=== PATIENT | male | born 1955 | race Caucasian/White ===

== ENCOUNTER 2016-09-27 13:58 | Inpatient (IN) | payer OTHER ==
[~2016-09-27] VITALS: Ht 162.6 cm; Wt 62.5 kg
--- NOTE | ~2016-09-27 | CATHLAB ---
[facility] [place] [address] INVASIVE PROCEDURE REPORT Name: PHYLLISMATHEUS Room #: 204-P [facility] IN .R.#: [id number] Admission: 09/27/16 Attend Phys: Fermin Valdivia MD Discharge: 09/30/16 Date of : 55 Date of Service: 09/30/16 0925 Report #: [id number] THIS REPORT FOR: //name// CC: Ross Valdivia DATE OF SERVICE: 09/29/2016 CARDIAC CATHETERIZATION REPORT INDICATIONS: Congestive heart failure with new-onset cardiomyopathy, ejection fraction of 20% to 25%. PROCEDURES: 1. Left heart catheterization. 2. Selective left and right coronary angiography. 3. Measurement of left ventricular end-diastolic pressure with left ventriculography. SILK WINDING MACHINE OPERATOR: Levar Almaguer M.D. BRIEF DESCRIPTION OF PROCEDURE: After informed consent was obtained, the patient was brought to the cardiac catheterization laboratory in stable condition. The patient's right groin was prepped and draped in the usual sterile manner after which lidocaine was then instilled. Utilizing a modified Seldinger technique, the right femoral artery was then accessed. Under fluoroscopic visualization using selective coronary catheters, the right and left coronaries were opacified and visualized. The left ventriculogram was likewise imaged per standard protocol with EDP being measured. Subsequent to this, the sheath was removed, hemostasis achieved. The patient tolerated the procedure well. There were no complications. FINDINGS: 1. HEMODYNAMICS: A. Aortic pressure 130/90. B. Left ventricular end-diastolic pressure 35 to 40. 2. FLUOROSCOPY: Under fluoroscopic visualization, there was some mild plaquing along the epicardial coronary arteries. No significant plaquing along the valvular or intramyocardial structures of the heart. 3. ANGIOGRAPHY: This is a right coronary dominant system. A. LEFT MAIN: This is of normal origin and caliber, bifurcates left anterior descending and left circumflex and has mild irregularities, but no high-grade obstructive lesions. B. LEFT ANTERIOR DESCENDING: This is a moderate-caliber type 3 vessel, which [facility] [address] [place] [address] INVASIVE PROCEDURE REPORT Name: PHYLLISMATHEUS Room #: 204-P [facility] IN .R.#: [id number] Admission: 09/27/16 Attend Phys: Fermin Valdivia MD Discharge: 09/30/16 Date of : 55 Date of Service: 09/30/16 0925 Report #: [id number] courses in the anterior interventricular sulcus, giving rise to septal and diagonal branches. At the origin of a larger septal branch, there appears to be a 50% eccentric lesion which is not flow limiting. The diagonal branches are free of high-grade disease and the remainder of the left anterior descending artery has luminal irregularities. C. LEFT CIRCUMFLEX: This is a moderate-caliber vessel, which gives rise to lateral wall marginal branch and posterolateral wall marginal branch. There are no luminal irregularities and no high-grade lesions. D. RIGHT CORONARY ARTERY: Right coronary artery is a small-caliber dominant vessel, which courses in the anterior interventricular sulcus. There are irregularities of 30% in the proximal section as it proceeds posteriorly, giving rise to posterior wall branch and posterior descending artery, with only luminal irregularities. IMPRESSION: 1. Coronary artery disease. 2. Abnormal hemodynamics. <ELECTRONICALLY SIGNED> By: Levar Almaguer MD 09/30/16 1918 0925 1433 Levar Almaguer MD /nt
--- NOTE | ~2016-09-27 | HC ---
[facility] [place] [address] CONSULTATION Name: MATHEUS FERGSUON Room #: 204-P [facility] IN M.R.#: [id number] Admission: 09/27/16 Attend Phys: Fermin Valdivia MD Discharge: 09/30/16 Date of : 55 Report #: [id number] THIS REPORT FOR: //name// CC: Ross Valdivia PULMONARY CONSULTATION PRIMARY CARE PHYSICIAN: Ross Oswald M.D. REFERRING PHYSICIAN: Latrell Moran DO. REASON FOR REFERRAL: Dyspnea. HISTORY OF PRESENT ILLNESS: The patient is a 61-year-old white male who was transferred from [place], [place] for ongoing management of respiratory failure. The patient is a fair historian. The patient states he has been short of breath for the past several days. Otherwise, he denies any fever, night sweats or chills or chest pain. He was then seen at a hospital in [place], [place], where he was evaluated and treated. He was subsequently transferred to [facility] for ongoing treatment. Otherwise, he denies any fever, night sweats, chills or chest pain. The patient does smoke about a pack a day and has done so for most of his life. He has been told that he has COPD. 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 He does not recall being exposed to asbestos. PAST MEDICAL HISTORY: Remarkable for tobacco abuse, seizure disorder and apparent history of benign brain mass along with seizure disorder. PAST SURGICAL HISTORY: Otherwise, unremarkable, other than appendectomy 39 years ago. ALLERGIES: ZOLPIDEM, which causes hallucinations. HOME MEDICATIONS: Include Keppra, Neurontin, [place] and Xanax. FAMILY HISTORY: Noncontributory. SOCIAL HISTORY: He is single, lives with his girlfriend. Tobacco history, as mentioned above, he smokes about a pack a day. He denies any alcohol abuse. He [facility] [address] [place] [address] CONSULTATION Name: MATHEUS FERGUSON Room #: 204-P [facility] IN [facility].#: [id number] Admission: 09/27/16 Attend Phys: Fermin Valdivia MD Discharge: 09/30/16 Date of : 55 Report #: [id number] has been disabled for the past 9 years; otherwise, he has worked as a manager of housekeeping. REVIEW OF SYSTEMS: As mentioned above; otherwise, 10-point system review negative. PHYSICAL EXAMINATION: GENERAL: On examination, he is awake, alert, in no apparent distress. VITAL SIGNS: Temperature is 97.4 degrees Fahrenheit, pulse is 50, respiratory rate is 20, blood pressure 100/56 mmHg and saturation is 92%. HEENT: Normocephalic, atraumatic. NECK: Supple, without any lymphadenopathy or thyromegaly. CHEST: Breath sounds are good bilaterally, without any obvious rales or wheezes. CARDIOVASCULAR: Normal S1, S2. No murmurs or gallop. There is no JVD. There is no carotid bruit. Pulses are 2+/4+ bilaterally. ABDOMEN: Soft, nontender. No organomegaly or masses felt. GENITOURINARY: Deferred. RECTAL: Deferred. EXTREMITIES: There is no edema, cyanosis or clubbing. LABORATORY DATA: CT chest and chest x-ray reports were reviewed. CT chest shows no evidence of pulmonary embolus, but remarkable for extensive bullous changes along with atelectasis and small pleural effusion seen. No pulmonary embolus is noted. WBC 21,600, hemoglobin is 15.9 and platelets are normal. No bandemia. Electrolytes are normal. Arterial blood gas revealed a pH of 7.47, pCO2 of 36 and pO2 of 64 on room air. IMPRESSION: 1. Progressive dyspnea in a 61-year-old white male. The etiology is likely due to chronic obstructive pulmonary disease with leukocytosis, cannot rule out infectious process. 2. 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 The patient continues to smoke. 3. Acute respiratory distress due to above progressive dyspnea and chronic obstructive pulmonary disease. 4. Tobacco abuse. 5. Seizure disorder with an apparent history of benign brain mass. 6. History of cardiomyopathy based on a recent echocardiogram. Cardiology has been consulted. The patient had a cardiac catheterization approximately 12 years ago, according to the patient. RECOMMENDATIONS: We would treat for presumed COPD exacerbation with bronchodilators, corticosteroids and broad-spectrum antibiotics. I cannot rule out early pneumonia. I strongly recommended smoke cessation. The patient would benefit from [address] [place] [address] CONSULTATION Name: PHYLLISMATHEUS Aguila Room #: 204-P [facility] IN M.R.#: [id number] Admission: 09/27/16 Attend Phys: Fermin Valdivia MD Discharge: 09/30/16 Date of : 55 Report #: [id number] pulmonary function test once stable as an outpatient. We will await cardiac evaluation. Thank you for this consultation. <ELECTRONICALLY SIGNED> By: Moo Henley MD 09/30/16 1801 1537 1729 Moo Henley MD /nt
[2016-09-27] MEDS ORDERED: KEPPRA 500 MG500 MG PO (16:18)
[2016-09-27] MEDS ORDERED: NEURONTIN 400400 M1 PO (16:21)
[2016-09-27] MEDS ORDERED: NORCO 5-325 TA1 EACH PO (16:23)
[2016-09-27] MEDS ORDERED: XANAX 0.25 MG0.25 MG PO (16:25)
[2016-09-27 20:45] LABS: ABG SAMPLE TYPE ARTERIAL; BE(vivo) 2.3 mmol/L (-2 to +3); HCO3 25.6 mmol/L (22.0-26.0); LACTATE 2.58 mmol/L (0.5-2.0); O2(CT) 21.9 mL/dL (15.0-23.0); O2Hb 91.8 % (92.0-98.0); PO2 64.3 mmHg (80.0-100.0); sO2 93.9 % (92.0-98.0); tCO2 26.7 mmol/L (24.0-30.0)
[2016-09-27 20:46] LABS: ABG COMMENT NO COMPLICATIONS.; STICK SITE R.RADIAL
[2016-09-28 03:52] LABS: HEMOGLOBIN 15.9 gm/dL (14.0-18.0); MCH 30.9 pg (26.0-34.0); MCHC 33.7 g/dL (28.0-37.0); MCV 91.7 fL (80.0-100.0); PLATELET COUNT 507 thou/uL (150-400); RBC 5.13 mil/uL (4.50-6.00); WBC 21.6 thou/uL (4.0-11.0)
[2016-09-28 03:54] LABS: MANUAL DIFF YES
[2016-09-28 04:19] LABS: CALCIUM 9.6 mg/dL (8.5-10.1); POTASSIUM 4.4 mmol/L (3.5-5.1)
[2016-09-28 07:22] LABS: ABSOLUTE NEUTROPHILS 19.4 thou/uL (1.4-8.2); TOTAL CELL COUNT 100
[2016-09-29 04:21] LABS: ABSOLUTE NEUTROPHILS 13.9 thou/uL (1.4-8.2); BASOPHILS 0.6 % (0.0-2.0); EOSINOPHILS 0.3 % (0.0-3.0); HEMATOCRIT 44.6 % (42.0-52.0); HEMOGLOBIN 14.9 gm/dL (14.0-18.0); LYMPHOCYTES 22.3 % (24.0-44.0); MCH 30.8 pg (26.0-34.0); MCHC 33.3 g/dL (28.0-37.0); MCV 92.6 fL (80.0-100.0); PLATELET COUNT 463 thou/uL (150-400); POLYS 71.8 % (36.0-66.0); RBC 4.82 mil/uL (4.50-6.00); RDW 13.4 % (10.5-14.5); WBC 19.4 thou/uL (4.0-11.0)
[2016-09-29 04:29] LABS: CALCIUM 8.8 mg/dL (8.5-10.1); CREATININE 1.3 mg/dL (0.6-1.3); POTASSIUM 4.1 mmol/L (3.5-5.1)
[2016-09-29 04:32] LABS: MANUAL DIFF NO
[2016-09-30] MEDS ORDERED: DOXYCYCLINE 10100 MG PO (12:08)
[2016-09-30] MEDS ORDERED: SPIRIVA INH (12:08)
[2016-09-30] MEDS ORDERED: PREDNISONE 10 M10 MG PO (12:08)
[2016-09-30] MEDS ORDERED: LASIX 40 MG TAB40 MG PO (12:08)
[2016-09-30] MEDS ORDERED: COREG3.125 MG PO (12:08)
[2016-09-30] MEDS ORDERED: LISINOPRIL5 MG PO (12:08)
[2016-09-30] MEDS ORDERED: PROAIR HFA8.5 GM INH (12:08)
[2016-09-30] MEDS ORDERED: K-DUR 20 MEQ T20 MEQ PO (12:08)
[2016-09-30] MEDS ORDERED: ECOTRIN325 MG PO (12:10)
== END 2016-09-30 16:20 | disposition home or self-care (01) | DRG 286 ==
LOC: 2N 13:58
PROVIDERS: Internal Medicine; Internal Medicine Geriatric Medicine
DX: I50.23 Acute on chronic systolic (congestive) heart failure (principal); J15.6 Pneumonia due to other Gram-negative bacteria; J96.01 Acute respiratory failure with hypoxia; J44.0 Chronic obstructive pulmonary disease with (acute) lower respiratory infection; J44.1 Chronic obstructive pulmonary disease with (acute) exacerbation; I42.9 Cardiomyopathy, unspecified; G40.909 Epilepsy, unspecified, not intractable, without status epilepticus; F17.210 Nicotine dependence, cigarettes, uncomplicated; Z88.8 Allergy status to other drugs, medicaments and biological substances
CPT/HCPCS: 10081

== ENCOUNTER 2017-01-21 21:36 | Inpatient (IN) | payer OTHER ==
[~2017-01-21] VITALS: Ht 162.6 cm; Wt 68.2 kg
[~2017-01-21 21:36] MED LIST: COREG3.125 MG PO; DOXYCYCLINE 10100 MG PO; ECOTRIN325 MG PO; K-DUR 20 MEQ T20 MEQ PO; KEPPRA 500 MG500 MG PO; LASIX 40 MG TAB40 MG PO; LISINOPRIL5 MG PO; NEURONTIN 400400 M1 PO; NORCO 5-325 TA1 EACH PO; PREDNISONE 10 M10 MG PO; PROAIR HFA8.5 GM INH; SPIRIVA INH; XANAX 0.25 MG0.25 MG PO
[2017-01-21 22:45] VITALS: BP 99/59
[2017-01-21 23:37] LABS: CALCIUM 8.5 mg/dL (8.5-10.1); CREATININE 6.3 mg/dL (0.7-1.3); POTASSIUM 4.9 mmol/L (3.5-5.1)
[2017-01-22] MEDS ORDERED: LISINOPRIL5 MG PO (00:34)
[2017-01-22 04:00] VITALS: BP 110/55; BP 91/52
[2017-01-22 05:25] LABS: HEMATOCRIT 39.5 % (42.0-52.0); MCH 31.5 pg (26.0-34.0); MCV 95.7 fL (80.0-100.0); RBC 4.12 mil/uL (4.50-6.00); RDW 13.8 % (10.5-14.5); WBC 12.2 thou/uL (4.0-11.0)
[2017-01-22 06:19] LABS: ALBUMIN 3.2 g/dL (3.4-5.0); CALCIUM 8.1 mg/dL (8.5-10.1); CREATININE 5.7 mg/dL (0.7-1.3); PHOSPHORUS 6.3 mg/dL (2.5-4.9); POTASSIUM 4.2 mmol/L (3.5-5.1)
[2017-01-22 07:03] LABS: URINE BILIRUBIN NEGATIVE (Negative); URINE BLOOD 1+ (Negative); URINE COLOR YELLOW; URINE GLUCOSE-RANDOM* NEGATIVE (Negative); URINE KETONES NEGATIVE (Negative); URINE LEUKOCYTES-REFLEX NEGATIVE (Negative); URINE PROTEIN (DIPSTICK) 1+ (Negative); URINE UROBILINOGEN 0.2 E.U./dl (0.2-1.0)
[2017-01-22 07:11] LABS: AMP/METHAMP POSITIVE (Negative); BARBITURATES Negative (Negative); BENZODIAZEPINES Negative (Negative); COCAINE Negative (Negative); METHADONE Negative (Negative); OPIATES Negative (Negative); PCP Negative (Negative); THC Negative (Negative)
[2017-01-22 07:27] LABS: HYALINE CASTS 0-3 Few /LPF (None Seen); SQUAMOUS None Seen /LPF (0-3); URINE RBC 0-2 Rare /HPF (0-2); URINE WBC-REFLEX None Seen /HPF (0-5)
[2017-01-22 07:28] LABS: CRYSTALS None Seen /LPF (None Seen)
[2017-01-22 08:39] VITALS: BP 122/62
[2017-01-22 13:20] LABS: URINE PROTEIN-RANDOM* 94.5 mg/dL (<11.9)
[2017-01-22 14:21] LABS: HEMATOCRIT 40.7 % (42.0-52.0); HEMOGLOBIN 13.6 gm/dL (14.0-18.0)
[2017-01-22 16:18] VITALS: BP 136/77
[2017-01-22 20:00] VITALS: BP 137/75
[2017-01-23 05:00] VITALS: BP 126/73
[2017-01-23 05:12] LABS: POTASSIUM 3.9 mmol/L (3.5-5.1)
[2017-01-23 05:13] LABS: ALBUMIN 2.4 g/dL (3.4-5.0); CALCIUM 7.5 mg/dL (8.5-10.1); PHOSPHORUS 2.5 mg/dL (2.5-4.9)
[2017-01-23 05:15] LABS: CREATININE 1.5 mg/dL (0.7-1.3)
[2017-01-23 08:44] VITALS: BP 109/70
[2017-01-23 09:59] LABS: ALBUMIN 2.5 g/dL (3.4-5.0); CALCIUM 7.8 mg/dL (8.5-10.1); CREATININE 1.2 mg/dL (0.7-1.3); PHOSPHORUS 2.1 mg/dL (2.5-4.9)
[2017-01-23 16:00] VITALS: BP 107/53
[2017-01-23 20:13] VITALS: BP 123/67
[2017-01-24 03:58] VITALS: BP 136/54
[2017-01-24 05:01] LABS: ABSOLUTE NEUTROPHILS 3.9 thou/uL (1.4-8.2); BASOPHILS 0.9 % (0.0-2.0); EOSINOPHILS 4.3 % (0.0-3.0); HEMATOCRIT 35.4 % (42.0-52.0); HEMOGLOBIN 12.1 gm/dL (14.0-18.0); LYMPHOCYTES 38.9 % (24.0-44.0); MCH 32.1 pg (26.0-34.0); MCHC 34.2 g/dL (28.0-37.0); MCV 93.9 fL (80.0-100.0); MONOCYTES 9.4 % (1.0-8.0); PLATELET COUNT 217 thou/uL (150-400); POLYS 46.5 % (36.0-66.0); RBC 3.77 mil/uL (4.50-6.00); RDW 13.6 % (10.5-14.5); WBC 8.3 thou/uL (4.0-11.0)
[2017-01-24 05:02] LABS: MANUAL DIFF NO
[2017-01-24 05:20] LABS: ALBUMIN 2.3 g/dL (3.4-5.0); CALCIUM 7.7 mg/dL (8.5-10.1); CREATININE 0.8 mg/dL (0.7-1.3); POTASSIUM 4.3 mmol/L (3.5-5.1); TOTAL BILIRUBIN 0.3 mg/dL (<0.1-1.0); TOTAL PROTEIN 5.5 g/dL (6.4-8.2)
[2017-01-24 05:23] VITALS: BP 135/88
[2017-01-24 08:49] VITALS: BP 126/73
[2017-01-24] MEDS ORDERED: VANCOMYCIN100 MG/ML PO (14:31)
[2017-01-24 14:39] VITALS: BP 126/73
== END 2017-01-24 15:20 | disposition home or self-care (01) | DRG 871 ==
LOC: 4S 21:36
PROVIDERS: Family Medicine; Hospitalist
DX: A41.9 Sepsis, unspecified organism (principal); E43 Unspecified severe protein-calorie malnutrition; A04.7 Enterocolitis due to Clostridium difficile; N17.9 Acute kidney failure, unspecified; K92.2 Gastrointestinal hemorrhage, unspecified; G40.909 Epilepsy, unspecified, not intractable, without status epilepticus; F41.9 Anxiety disorder, unspecified; F32.9 Major depressive disorder, single episode, unspecified; I50.9 Heart failure, unspecified; F10.21 Alcohol dependence, in remission; F17.210 Nicotine dependence, cigarettes, uncomplicated; E87.5 Hyperkalemia; E86.0 Dehydration; F15.10 Other stimulant abuse, uncomplicated; G93.9 Disorder of brain, unspecified; Z90.49 Acquired absence of other specified parts of digestive tract; Z88.8 Allergy status to other drugs, medicaments and biological substances
CPT/HCPCS: 10100

== ENCOUNTER 2017-02-04 21:00 | Inpatient (IN) | payer OTHER ==
[~2017-02-04] VITALS: Ht 162.6 cm; Wt 64.9 kg
--- NOTE | ~2017-02-04 | HC ---
[facility] [place] [address] CONSULTATION Name: YURI FERGUSON Room #: 459-P ADM IN M.R.#: [id number] Admission: 02/04/17 Attend Phys: He Valdivia DO Discharge: Date of : 55 Report #: [id number] THIS REPORT FOR: //name// CC: Ross Valdivia REASON FOR CONSULTATION: Elevated creatinine. CONSULTING PHYSICIAN: Fermin Valdivia MD. HISTORY OF PRESENT ILLNESS: A 61-year-old who is well known to me from previous admissions. He had been in the hospital a couple of weeks for C. diff colitis and acute kidney injury and was treated accordingly. He has methamphetamine abuse history. He presented to [facility] with the same complaint of bloody bowel movement and diarrhea. No fever or chills. He was on a couple of medications including potassium and some other blood pressure medications in the past that contributed to acute kidney injury with hyperkalemia. On presentation to [facility], he was found yet again to be in acute kidney injury with an elevated creatinine and BUN. He was also found to be hyperkalemic. I am being consulted to manage his acute kidney injury. PAST MEDICAL HISTORY: 1. C. difficile colitis. 2. Seizure disorder. 3. Acute kidney injury. 4. Benign brain mass. 5. Anxiety. 6. Headaches. 7. Heart failure. FAMILY HISTORY: Significant for hypertension and diabetes mellitus. SOCIAL HISTORY: Heavy smoker. He denies alcohol abuse. He was positive for methamphetamine. ALLERGIES: AMBIEN. MEDICATIONS: 1. Furosemide. 2. Keppra. 3. Gabapentin. 4. Potassium. REVIEW OF SYSTEMS: GENERAL: No fever or chills. CARDIOVASCULAR: No chest pain. PULMONARY: No cough or hemoptysis. [facility] [address] [place] [address] CONSULTATION Name: YURI FERGUSON Aguila Room #: 459-P [facility] IN M.R.#: [id number] Admission: 02/04/17 Attend Phys: He Valdivia DO Discharge: Date of : 55 Report #: [id number] GASTROINTESTINAL: Significant for diarrhea, bloody. GENITOURINARY: Decreased urine output. PHYSICAL EXAMINATION: GENERAL: He is alert, oriented with a very poor hygiene. VITAL SIGNS: Blood pressure was 134/83. HEAD AND NECK: No jugular venous distention, no bruit, no thyromegaly. HEENT: Dry mucous membrane, poor hygiene. CHEST: Clear to auscultation. CARDIOVASCULAR: Regular with no rub detected. ABDOMEN: Soft, nontender with no hepatosplenomegaly. LOWER EXTREMITIES: No edema. LABORATORY VALUES: Reviewed. White blood cell count was 22,000. Creatinine was 6 and it is down to 5.4. AST was mildly elevated. He is positive yet again for amphetamine. C. diff is pending. ASSESSMENT, IMPRESSION AND PLAN: 1. Acute kidney injury. 2. Hyperkalemia. 3. Noncompliance. 4. History of Clostridium difficile. 5. Aggressive intravenous fluid. 6. Discontinue potassium supplement. 7. Expect his acute kidney injury to fully recover as the last time. I doubt that he has been taking his medications including his vancomycin. 8. Strict input and output. 9. Check lab values in the morning. <ELECTRONICALLY SIGNED> By: Roscoe Emmanuel MD 02/07/17 0835 0752 1055 Roscoe Emmanuel MD /nt
--- NOTE | ~2017-02-04 | HC ---
[facility] [place] [address] CONSULTATION Name: YURI FERGUSON Room #: 459-P ADM IN M.R.#: [id number] Admission: 02/04/17 Attend Phys: Fermin Valdivia MD Discharge: Date of : 55 Report #: [id number] THIS REPORT FOR: //name// CC: Ross Valdivia DATE OF SERVICE: 02/05/2017 REASON FOR CONSULTATION: Bloody diarrhea. CONSULTING PHYSICIAN: MEMO Everett. HISTORY OF PRESENT ILLNESS: This is a 61-year-old gentleman, was transferred from [facility] for acute renal failure and bloody diarrhea. The patient was recently discharged from [facility] on 01/24/2017, which is C. diff infection. He was placed on oral vancomycin and was to complete a 10-day course. He is not able to provide a good history. He is unclear if he has completed or took any of his medications at home. He has been admitted with 2 episodes of emesis and 3 large loose bowel movements described as bloody stools. He described bright red blood on admission. The bright red blood per rectum has resolved. He continues to have diarrhea reports and reports 10 bowel movements today. He states there is some form to the bowel movements today. He has been started on oral vancomycin along with ciprofloxacin and Flagyl in the hospital. He has never had a colonoscopy. REVIEW OF SYSTEMS: As noted in the HPI, otherwise 10-point review of systems negative. PAST MEDICAL HISTORY AND SURGICAL HISTORY: 1. Seizure disorder. 2. Tobacco abuse. 3. History of C. diff infection. 4. Appendectomy. ALLERGIES AND MEDICATIONS: Reviewed and are negative. SOCIAL HISTORY: Single, smokes about a pack a day. Denies alcohol use. Does report methamphetamine use. FAMILY HISTORY: He is not sure if any of his family has members colon cancer. PHYSICAL EXAMINATION: GENERAL: Alert and oriented to time, place, person and appears in moderate distress. VITAL SIGNS: Hemodynamically stable, afebrile. HEAD: Normocephalic, atraumatic head. [facility] [address] [place] [address] CONSULTATION Name: PHYLLISYURI Room #: 459-P ADM IN ..#: [id number] Admission: 02/04/17 Attend Phys: Fermin Valdivia MD Discharge: Date of : 55 Report #: [id number] EYES: Pupils are equal, round, reactive to light and accommodation. Extraocular movements intact. No pallor. No icterus. NECK: Supple. Midline trachea. Thyroid palpable. CARDIOVASCULAR: Regular rate and rhythm. No murmurs. RESPIRATORY: Chest clear to auscultation bilaterally. ABDOMEN: Soft, nontender, nondistended, bowel sounds present. EXTREMITIES: No cyanosis, clubbing or edema. SKIN: Warm and dry. No rashes. NEUROLOGIC: Cranial nerves were grossly intact. No focal deficits. LABORATORY DATA: White count 12.7, hemoglobin 14.6. Admit hemoglobin 14.9, platelets 401. BUN 60, creatinine is 5.4. Normal liver function tests, except mildly elevated AST of 61. C. diff is pending at this time. DIAGNOSTIC IMPRESSION AND PLAN: 1. Hematochezia. He states that his rectal bleeding has resolved. This could be from acute infection. Stool studies are pending at this time. His hemoglobin is relatively stable. Admit hemoglobin 14.9 and now, it is 14.6. 2. Diarrhea. Suspect he may have recurrence of Clostridium diff. I am not sure if he was appropriately taking his medication at home to complete the 10-day course of oral vancomycin. This has been reinstituted at this time. I recommend continuing oral vancomycin 125 mg p.o. 4 times a day to complete a 14-day course at this time. I also suggest completing a 7-day course of ciprofloxacin and Flagyl. Again, we are waiting on the stool studies. He continues to have diarrhea, but his bowel has some form. I expect continued improvement on concurrent antibiotic therapy. 3. We will follow. Thank you for allowing me to participate in the care of the patient. <ELECTRONICALLY SIGNED> By: Brian Carrillo MD 02/06/17 1020 1353 1529 Brian Carrillo MD /nt
--- NOTE | ~2017-02-04 | HC ---
[facility] [place] [address] CONSULTATION Name: YURI MENSAH Room #: 459-P ADM IN M.R.#: [id number] Admission: 02/04/17 Attend Phys: Fermin Valdivia MD Discharge: Date of : 55 Report #: [id number] THIS REPORT FOR: //name// CC: Ross Valdivia DATE OF SERVICE: 02/05/2017 CONSULTATION: Infectious diseases. HISTORY OF PRESENT ILLNESS: Alan Mensah is a 61-year-old male who is transferred from [facility] because of renal failure, diarrhea with recurrence of C. difficile disease. The patient was hospitalized from January 21 to January 24 and at that time the patient presented with bloody diarrhea. He was found to be C. difficile positive. He had marked elevation of his creatinine and potassium. The renal function corrected with hydration. Diarrhea improved with vancomycin and he was discharged with a prescription for 10 days of liquid vancomycin. The patient says he was taking the vancomycin regularly but at some point he went out of town and left the medication in the refrigerator. While he was off the vancomycin, his diarrhea came back; he restarted the vancomycin, but continued to have diarrhea with blood per rectum. He presented at the [facility], and found to have renal failure. He was transferred to [facility] for further evaluation and treatment. PAST MEDICAL HISTORY: Significant for brain mass. The patient has anxiety and depression. He has a past history of seizure disorder, history of appendectomy. MEDICATION RECONCILIATION: Current medication include nicotine patch 14 mg daily, Levetiracetam 1500 mg b.i.d., Cipro 200 mg b.i.d., carvedilol 3.125 b.i.d., Flagyl 500 mg IV q. 8 hours, vancomycin 125 mg p.o. q. 6 hours, p.r.n. Tylenol, Zofran and has been on IV fluids. ALLERGIES: The patient notes allergy to ZOLPIDEM. FAMILY HISTORY: Noncontributory. SOCIAL HISTORY: The patient is single. He lives with his girlfriend. He does smoke cigarettes about half a pack to a pack per day. He says that he used illegal drugs once since leaving the hospital. He is disabled by his medical problems. REVIEW OF SYSTEMS: GENERAL: The patient was not complaining of fevers, chills, sweats. He has got weakness and malaise. ENT: No headache, sinus congestion, sore throat, [place] [address] CONSULTATION Name: YURI MENSAH Room #: 459-P [facility] IN ..#: [id number] Admission: 02/04/17 Attend Phys: Fermin Valdivia MD Discharge: Date of : 55 Report #: [id number] CHEST: The patient denies cough, chest pain, shortness of breath. Denies syncope, angina or palpitations. GASTROINTESTINAL: The patient denies nausea, vomiting. He did feel bloated. He had difficulty eating but this is better. He did have frequent bowel movements every couple hours. These are now also improving with his last BM several hours ago and slightly formed. The patient is having some abdominal discomfort. GENITOURINARY: No complaints. EXTREMITIES: No complaints. PHYSICAL EXAMINATION: NEUROLOGIC: The patient appears his stated age, alert, oriented, comfortable, not in any distress. VITAL SIGNS: Show the patient has been afebrile since coming to the hospital. Blood pressure is normal, ranging from 95/65-145/87, oxygen saturations are good. His weight is stable and 143 sounds. SKIN: Shows no rash, lesion or exanthem. ENT: Negative. CARDIOVASCULAR: Heart sounds normal. LUNGS: Clear. ABDOMEN: Belly is distended, soft, mildly tender. Bowel sounds present. No mass, no organomegaly. EXTREMITIES: Unremarkable. LABORATORY DATA: CBC shows white count was 22 yesterday, is down to 12.7 today, hemoglobin is 14.6, hematocrit 44.3, platelet 401,000. The differential continues to show shift to the left with 41% polys, 18% bands, 3% atypical lymphocytes. The electrolytes show sodium 137, potassium 5.0 down from 5.4, chloride 101, bicarbonate 24, BUN has gone stable at 60, creatinine has gone from 6.0 to 5.4, glucose is normal. Liver function tests are normal. The microbiology laboratory has no results available yet. IMPRESSION: Recurring diarrhea with a history of recent Clostridium difficile and hiatus in vancomycin therapy. It is very common for a C. difficile to relapse after stopping antibiotics. When the antibiotic course is not even full 10 days, the chance of relapse is even higher. I suspect that is a problem here, that we have an interrupted course of vancomycin allowing the C. difficile to persist and come back after the vancomycin was stopped. At this time, we will restart the patient back on vancomycin. I strongly encouraged him to complete the 10-day course as recommended. We will add probiotics with saccharomyces and lactobacillus. I will discontinue the Cipro as this will tend to suppress competing bart and help increase the levels of [facility] [address] [place] [address] CONSULTATION Name: YURI MENSAH Room #: 459-P ADM IN M.R.#: [id number] Admission: 02/04/17 Attend Phys: Fermin Valdivia MD Discharge: Date of : 55 Report #: [id number] the C. difficile toxin. I appreciate the opportunity of input in the care of the patient. I will be happy to follow him through the weekend until Dr. Bell returns on Tuesday. When his diabetes is under control and his renal function is stable, he could be discharged with the understanding that he really needs to carefully followup through with his medication, recommendations to prevent more relapse. <ELECTRONICALLY SIGNED> By: Ross Edward MD 02/06/17 2213 2146 010 Ross Edward MD /nt
[~2017-02-04 21:00] MED LIST changes: +VANCOMYCIN100 MG/ML PO
[2017-02-04] MEDS ORDERED: LASIX 40 MG TAB40 M2 PO (23:02)
[2017-02-04] MEDS ORDERED: CELEXA10 MG PO (23:03)
[2017-02-04 23:04] LABS: HEMATOCRIT 44.1 % (42.0-52.0); HEMOGLOBIN 14.9 gm/dL (14.0-18.0); MCH 31.9 pg (26.0-34.0); MCHC 33.7 g/dL (28.0-37.0); MCV 94.5 fL (80.0-100.0); PLATELET COUNT 445 thou/uL (150-400); RBC 4.67 mil/uL (4.50-6.00); RDW 13.7 % (10.5-14.5); WBC 22.2 thou/uL (4.0-11.0)
[2017-02-04 23:06] LABS: MANUAL DIFF YES
[2017-02-04 23:11] LABS: ALBUMIN 3.9 g/dL (3.4-5.0); CALCIUM 10.2 mg/dL (8.5-10.1); POTASSIUM 5.4 mmol/L (3.5-5.1); TOTAL BILIRUBIN 0.8 mg/dL (<0.1-1.0); TOTAL PROTEIN 7.9 g/dL (6.4-8.2)
[2017-02-04 23:53] LABS: ABSOLUTE NEUTROPHILS 17.1 thou/uL (1.4-8.2); TOTAL CELL COUNT 100
[2017-02-05 02:08] LABS: AMP/METHAMP POSITIVE (Negative); BARBITURATES Negative (Negative); BENZODIAZEPINES Negative (Negative); COCAINE Negative (Negative); METHADONE Negative (Negative); OPIATES Negative (Negative); PCP Negative (Negative); THC Negative (Negative)
[2017-02-05 04:20] VITALS: BP 145/87
[2017-02-05 06:41] LABS: HEMATOCRIT 44.3 % (42.0-52.0); HEMOGLOBIN 14.6 gm/dL (14.0-18.0); MCH 31.6 pg (26.0-34.0); MCV 95.8 fL (80.0-100.0); PLATELET COUNT 401 thou/uL (150-400); RBC 4.62 mil/uL (4.50-6.00); RDW 13.5 % (10.5-14.5); WBC 12.7 thou/uL (4.0-11.0)
[2017-02-05 06:53] LABS: MANUAL DIFF YES
[2017-02-05 07:13] LABS: ALBUMIN 3.5 g/dL (3.4-5.0); CALCIUM 9.2 mg/dL (8.5-10.1); CREATININE 5.4 mg/dL (0.7-1.3); TOTAL BILIRUBIN 0.7 mg/dL (<0.1-1.0); TOTAL PROTEIN 6.9 g/dL (6.4-8.2)
[2017-02-05 07:50] VITALS: BP 134/83
[2017-02-05 08:27] LABS: ABSOLUTE NEUTROPHILS 7.5 thou/uL (1.4-8.2); ANISOCYTOSIS SLIGHT; ATYPICAL LYMPHS 3 %; LARGE PLATELETS OCCASIONAL; POIKILOCYTOSIS SLIGHT; TOTAL CELL COUNT 100
[2017-02-05 11:46] VITALS: BP 95/65
[2017-02-05 16:45] VITALS: BP 103/68
[2017-02-05 20:05] VITALS: BP 108/70
[2017-02-06 06:05] VITALS: BP 121/68
[2017-02-06 06:47] LABS: HEMATOCRIT 35.5 % (42.0-52.0); MCH 31.8 pg (26.0-34.0); MCHC 33.5 g/dL (28.0-37.0); RBC 3.73 mil/uL (4.50-6.00); RDW 13.7 % (10.5-14.5); WBC 8.8 thou/uL (4.0-11.0)
[2017-02-06 06:48] LABS: HEMOGLOBIN 11.9 gm/dL (14.0-18.0); MANUAL DIFF YES; PLATELET COUNT 294 thou/uL (150-400)
[2017-02-06 07:17] LABS: ALBUMIN 2.5 g/dL (3.4-5.0); CALCIUM 7.8 mg/dL (8.5-10.1); PHOSPHORUS 2.5 mg/dL (2.5-4.9); TOTAL BILIRUBIN 0.4 mg/dL (<0.1-1.0); TOTAL PROTEIN 5.6 g/dL (6.4-8.2)
[2017-02-06 07:31] LABS: POTASSIUM 3.9 mmol/L (3.5-5.1)
[2017-02-06 07:32] LABS: CREATININE 2.2 mg/dL (0.7-1.3)
[2017-02-06 10:59] LABS: ABSOLUTE NEUTROPHILS 5.8 thou/uL (1.4-8.2); ANISOCYTOSIS SLIGHT; TOTAL CELL COUNT 100
[2017-02-06 13:02] VITALS: BP 117/77
[2017-02-06 18:47] VITALS: BP 139/80
[2017-02-07 03:43] VITALS: BP 109/60
[2017-02-07 04:44] LABS: ABSOLUTE NEUTROPHILS 6.9 thou/uL (1.4-8.2); BASOPHILS 0.7 % (0.0-2.0); EOSINOPHILS 2.7 % (0.0-3.0); HEMATOCRIT 32.4 % (42.0-52.0); HEMOGLOBIN 11.1 gm/dL (14.0-18.0); MCH 32.6 pg (26.0-34.0); MCHC 34.2 g/dL (28.0-37.0); MCV 95.2 fL (80.0-100.0); MONOCYTES 11.5 % (1.0-8.0); PLATELET COUNT 271 thou/uL (150-400); POLYS 63.1 % (36.0-66.0); RBC 3.41 mil/uL (4.50-6.00); RDW 13.7 % (10.5-14.5); WBC 10.9 thou/uL (4.0-11.0)
[2017-02-07 04:58] LABS: MANUAL DIFF NO
[2017-02-07 05:05] LABS: ALBUMIN 2.2 g/dL (3.4-5.0); CALCIUM 7.6 mg/dL (8.5-10.1); PHOSPHORUS 1.7 mg/dL (2.5-4.9); TOTAL BILIRUBIN 0.2 mg/dL (<0.1-1.0); TOTAL PROTEIN 5.2 g/dL (6.4-8.2)
[2017-02-07 05:12] LABS: CREATININE 1.1 mg/dL (0.7-1.3)
[2017-02-07 07:33] VITALS: BP 118/65
[2017-02-07] MEDS ORDERED: CIPRO500 MG PO (08:49)
[2017-02-07] MEDS ORDERED: VANCOMYCIN100 MG/ML PO (08:49)
[2017-02-07] MEDS ORDERED: FLAGYL500 MG PO (08:49)
== END 2017-02-07 13:53 | disposition home or self-care (01) | DRG 871 ==
LOC: 4W 21:00
PROVIDERS: Nurse Practitioner
DX: A41.9 Sepsis, unspecified organism (principal); E43 Unspecified severe protein-calorie malnutrition; N17.9 Acute kidney failure, unspecified; K92.1 Melena; F19.20 Other psychoactive substance dependence, uncomplicated; F15.20 Other stimulant dependence, uncomplicated; G40.909 Epilepsy, unspecified, not intractable, without status epilepticus; F41.9 Anxiety disorder, unspecified; F17.210 Nicotine dependence, cigarettes, uncomplicated; E87.5 Hyperkalemia; F32.9 Major depressive disorder, single episode, unspecified; D64.9 Anemia, unspecified; K52.9 Noninfective gastroenteritis and colitis, unspecified; Z88.8 Allergy status to other drugs, medicaments and biological substances; Z91.19 Patient's noncompliance with other medical treatment and regimen; Z90.49 Acquired absence of other specified parts of digestive tract; Z82.49 Family history of ischemic heart disease and other diseases of the circulatory system; Z83.3 Family history of diabetes mellitus
CPT/HCPCS: 10045

== ENCOUNTER 2018-10-26 10:29 | Outpatient (CLI) | payer OTHER ==
[~2018-10-26] VITALS: Ht 162.6 cm; Wt 64.4 kg
[~2018-10-26 10:29] MED LIST changes: +CELEXA10 MG PO; +CIPRO500 MG PO; +FLAGYL500 MG PO; +LASIX 40 MG TAB40 M2 PO
[2018-10-26 11:13] VITALS: BP 122/59
[2018-10-26 11:21] LABS: HEMATOCRIT 43.4 % (42.0-52.0); HEMOGLOBIN 14.9 gm/dL (14.0-18.0); MCH 32.1 pg (26.0-34.0); MCHC 34.3 g/dL (28.0-37.0); MCV 93.6 fL (80.0-100.0); RBC 4.64 mil/uL (4.50-6.00); RDW 13.1 % (10.5-14.5); WBC 9.1 thou/uL (4.0-11.0)
[2018-10-26] MEDS ORDERED: COREG25 MG PO (11:22)
[2018-10-26] MEDS ORDERED: PLAVIX 75 MG TA75 M1 PO (11:24)
[2018-10-26] MEDS ORDERED: LISINOPRIL5 MG PO (11:24)
[2018-10-26] MEDS ORDERED: PRAVACHOL40 MG PO (11:25)
[2018-10-26 11:30] LABS: CALCIUM 9.3 mg/dL (8.5-10.1); CREATININE 1.1 mg/dL (0.7-1.3); POTASSIUM 4.3 mmol/L (3.5-5.1)
--- NOTE | 2018-10-26 16:19 | NUR ---
PATIENT PLACED IN CCU BED FOR REMAINDER OF BEDREST. DISCHARGE INSTRUCTIONS GIVEN TO CCU RN RAOUL, PATIENT GROIN C/D/I, NO HEMATOMA. PATIENT PLACED IN ROOM 200.
--- NOTE | 2018-10-27 15:19 | CATHLAB ---
[facility] [address] [place] [address] INVASIVE PROCEDURE REPORT Name: YURI FERGUSON Room #: [facility]P [id number] ������������� Admission: 10/26/18 ������������� Attend Phys: Levar Amaro Discharge: ��� 10/26/18 ������������� ��� Date of : 55 Date of Service: 10/27/18 1519 �� Report #: [id number] �������� ��������������������������������������������[id number] THIS REPORT FOR: //name// APPROVED REPORT Study performed: 10/26/2018 13:50:23 Patient Details Patient Status: Out-Patient Room #: The patient is a 63 year-old male Event Personnel Levar Almaguer Grape Grower, Ebony Capellan, CERTIFIED NURSES AIDE Monitor, Tushar Cole RN RN, Avelina Hester Scrmichael Procedures Performed Art Access - R femoral artery* Left Heart Cath w/or w/o Coronaries [id number] [facility] [address] Initial Mod Sed Same Phys/QHP 5y [id number] Hemostasis with Manual pressure supervision of conscious sedation Indication Positive stress test, Chest pain Risk Factors Coronary Artery Disease Procedure Narrative The Right Groin^ was infiltrated with 1% Lidocaine subcutaneous anesthesia. A PINNACLE 4FR Sheath #[id number] sheath was inserted into the RFA^. Coronary angiography was performed using coronary diagnostic catheters. The right coronary system was accessed and visualized with a JR4 catheter. The left coronary system was accessed and visualized with a JL4 catheter. The left ventricle was accessed and visualized with a angled pigtail catheter. Left ventricular/Aortic Valve gradient assessed via catheter pullback. Left ventriculogram was performed in 30 degree projection. Hemostasis was obtained with manual pressure following sheath removal without any complications. The patient tolerated the procedure well and there were no complications associated with the procedure. There was no hematoma. Intraoperative Conscious Sedation Sedation start time: 13:52 Case end Time: 14:23 [facility] [email or web address] [address] INVASIVE PROCEDURE REPORT Name: YURI FERGUSON Room #: DEP Darci#: [id number] ������������� Admission: 10/26/18 ������������� Attend Phys: Levar Amaro Discharge: ��� 10/26/18 ������������� ��� Date of : 55 Date of Service: 10/27/18 1519 �� Report #: [id number] �������� ��������������������������������������������[id number] Versed 2 mg Fluoro Time: 3.40 minutes Dose: DAP 3174.00 cGycm2 927 mGy Contrast Type and Amount: Omnipaque 55 ml Coronary Angiography The patient's coronary anatomy is right dominant. Diagnostic Cath Left Main Normal origin and caliber bifurcates that anterior descending left circumflex. Has mild irregularities noted but no flow-limiting lesions LAD Moderate caliber type II vessel courses in the anterior interventricular sulcus. His proximal courses irregularities noted of under 50%. He gives rise to diagonal branch and septal perforators with only luminal irregularities. And continues in the anterior interventricular sulcus with a very tortuous course in its midportion appears to have a segment of approximately 50% stenosis. This has not inhibited flow as the vessel continues and terminates in the apical region. Diagonal 1 Small non-caliber vessel with luminal irregularities present Circumflex Small-caliber vessel and has 60% proximal lesion. Then reconstitutes itself can rest the diagonal branches free of high-grade disease these vessels are quite small in size less than 0.5 mm in diameter. OM1 Small diminutive vessel without high-grade lesion OM2 Small diminutive vessel without high-grade lesion Right Coronary Monitor large-caliber vessel of normal origin and proceeding anteriorly interventricular sulcus with is a less than 50% lesion in its proximal course. The continues beyond the acute margin with the vessel is completely occluded 2 antegrade flow R PDA Not visualized by angiography due to total occlusion of its origin at the juncture of the mid right coronary artery Left Ventriculography The left ventricle is normal in size with mildly decreased contractility. Left ventricular wall motion abnormalities are noted principally in the inferior and anteroapical wall. Hemodynamics The aortic pressure is 141/75 mmHg with a mean of 91 mmHg. The left ventricular pressure is 148/7 mmHg with a mean of mmHg. The left ventricular end diastolic pressure is 19 mmHg. [facility] [address] [place] [address] INVASIVE PROCEDURE REPORT Name: YURI FERGUSON Room #: [facility] Darci#: [id number] ������������� Admission: 10/26/18 ������������� Attend Phys: Levar Amaro Discharge: ��� 10/26/18 ������������� ��� Date of : 55 Date of Service: 10/27/18 1519 �� Report #: [id number] �������� ��������������������������������������������[id number] Conclusion 1. 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 2. Abnormal urinalysis slightly elevated left ventricular end-diastolic pressures Recommendations Cardiac Risk Reduction Program Aggressive Medical Therapy ��������������������������������������������� <ELECTRONICALLY SIGNED> ���������������������������������������� By: Levar Almaguer MD ��������������������������������������������� 10/27/18 1519 18 18 Levar Almaguer MD /INF
--- NOTE | 2018-10-28 18:12 | EKG ---
[address] [address] ELECTROCARDIOGRAM REPORT Name: YURI FERGUSON Room #: [facility] KEN Bejarano#: [id number] ������������������ Admission: 10/26/18 ������������������ Attend Phys: Levar Almaguer Discharge: 10/26/18 ������������������ Date of : 55 Report #: [id number] ����������������������������������������������������������������� [id number] THIS REPORT FOR: //name// [facility] Test Date: 2018-10-26 Test Time: 10:46:25 Pat Name: YURI FERGUSON Department: Room: Gender: M System Software Programmer: João CASTRO : 1955 Requested By: Levar Almaguer Order Number: [id number] MD: Levar Almaguer Measurements Intervals [place] Rate: 56 P: 62 WA: 148 QRS: 41 QRSD: 93 T: 62 QT: 441 QTc: 426 Interpretive Statements Sinus bradycardia Nonspecific ST-T wave changes Compared to ECG 11/26/2005 07:24:32 No significant changes Electronically Signed On 10-28-2018 18:12:28 CDT by Levar Almaguer [email or web address] ��������������������������������������������� <ELECTRONICALLY SIGNED> ���������������������������������������� By: Levar Almaguer MD ��������������������������������������������� 10/28/182 1046 104 Levar Almaguer MD /EPI
== END 2018-10-26 17:00 | disposition home or self-care (01) ==
LOC: CATH 10:29 → 2N 16:30 → CATH 17:00
PROVIDERS: Internal Medicine
DX: I25.10 Atherosclerotic heart disease of native coronary artery without angina pectoris (principal); I25.82 Chronic total occlusion of coronary artery; I11.0 Hypertensive heart disease with heart failure; I50.9 Heart failure, unspecified; E78.5 Hyperlipidemia, unspecified; Z88.8 Allergy status to other drugs, medicaments and biological substances; Z98.890 Other specified postprocedural states; Z79.899 Other long term (current) drug therapy; Z90.49 Acquired absence of other specified parts of digestive tract; Z82.49 Family history of ischemic heart disease and other diseases of the circulatory system; Z83.3 Family history of diabetes mellitus; Z87.891 Personal history of nicotine dependence; Z86.73 Personal history of transient ischemic attack (TIA), and cerebral infarction without residual deficits; Z95.5 Presence of coronary angioplasty implant and graft
CPT/HCPCS: 10081